=== PATIENT | female | born 1975 | race Caucasian/White ===

== ENCOUNTER → 2016-12-26 | Outpatient (REF) | payer MEDICARE ==
[~2016-12-26] MED LIST: /ADVA50050 INH; /AMIT10TA PO; /PANT40TA PO; /QUET10TA PO; ACTI300C PO; ADV100INH INH; ADV250INH INH; ALBU17IN2 INH; ALPR1TAB3 PO; BACITAB3 PO; CALC-190 PO; CALCI50TA PO; CARA1SUS PO; CHLO25TA5 PO; CHOL4PKT PO; CIPR500T89 PO; CYMB1CAP PO; DOCU10ELUD PO; FLAG500T PO; IMIT100T PO; KRIL300C PO; KRIL300C2 PO; LEVS0.123 PO; LEVS0.123 SL; LOPE2CA PO; LYRI100C10 PO; LYRI150C PO; LYRI200C OR; MAAL600C PO; MESA24CASA PO; MILKSUS PO; MOM30SS PO; MULTTAB4 PO; MYLI40DR PO; OCEA0.65; OMEP40CA2 PO; OXYC15TA66 PO; OXYC30TA4 PO; OXYC5CAP28 PO; PENT500C4 PO; PERCOCET PO; PHEN1SUP6 PO; PRED1TAB32 PO; PRED20TA PO; PRIL20CA PO; PRIL40CA PO; PROB1TAB PO; PROBCAP13 PO; PROBCAP4 PO; REGL10TA6 PO; SIME80TA PO; TRAV0.00 OU; TRAV04OPD OU; TRAZ100T2 PO; TRAZ100T4 PO; TRAZ10TA PO; TRAZ150T OR; TRAZ50TA2 PO; TYLE325T5 PO; ULTR50TA PO; XANA1TAB2 PO; ZANT150T PO; ZOFR4TAB3 SL; ZOFR8TAB PO; ZOFR8TAB4 SL; ZOLO100T OR; ZYPR10TA PO; ZYPREXA ZYDIS PO; albuterol nebulizer NEB; seroquel PO; vicodin PO
[2016-12-26 13:43] LABS: MEAN CORPUSCULAR HEMOGLOBIN 30.5 pg (27.0-33.0); MEAN CORPUSCULAR HGB CONC 33.9 g/dl (32.0-36.5); MEAN CORPUSCULAR VOLUME 89.8 fl (80.0-96.0); RED CELL DISTRIBUTION WIDTH 14.1 % (11.5-14.5); WHITE BLOOD COUNT 6.7 K/mm3 (4.0-10.0)
[2016-12-26 13:44] LABS: ALBUMIN 3.9 GM/DL (3.2-5.2); ALKALINE PHOSPHATASE 122 U/L (45-117); ALT/SGPT 9 U/L (12-78); ANION GAP 8 MEQ/L (8-16); AST/SGOT 10 U/L (15-37); BILIRUBIN,TOTAL 0.5 MG/DL (0.2-1.0); BLOOD UREA NITROGEN 8 MG/DL (7-18); CALCIUM LEVEL 8.5 MG/DL (8.5-10.1); CARBON DIOXIDE LEVEL 27 MEQ/L (21-32); CHLORIDE LEVEL 104 MEQ/L (98-107); CREATININE FOR GFR 0.54 MG/DL (0.55-1.02); GLOMERULAR FILTRATION RATE > 60.0 (>58); GLUCOSE, FASTING 105 MG/DL (70-105); POTASSIUM SERUM 4.1 MEQ/L (3.5-5.1); SODIUM LEVEL 139 MEQ/L (136-145); TOTAL PROTEIN 6.9 GM/DL (6.4-8.2)
== END ==
LOC: M LABDRAW1 13:07
PROVIDERS: ATTEND Family Medicine
DX: F11.20 Opioid dependence, uncomplicated (principal)

== ENCOUNTER → 2017-01-17 | Outpatient (CLI) | payer MEDICARE, MEDICAID ==
--- NOTE | 2017-01-17 14:23 | ECGEPIP ---
Stationary ECG Study [facility] Test Date: 2017-01-17 Pat Name: PONCHO BRIAN Department: Room: - Gender: F Proofreader: AMRITA : [id number] Requested By: Ace Arora Order Number: [id number] Reading MD: Alexandra Chau Measurements Intervals [place] Rate: 69 P: 71 NM: 137 QRS: 91 QRSD: 100 T: 42 QT: 400 QTc: 431 Interpretive Statements SINUS RHYTHM WITH SINUS ARRHYTHMIA BORDERLINE RIGHT AXIS DEVIATION rate faster ant t wave abn no longer present nonspecific inf sttw abn new prob septal repolar changes more prominent c/w 11/23/14 Electronically Signed On 01-17-2017 14:23:26 EDT by Alexandra Chau
== END ==
LOC: M EKG 12:15
PROVIDERS: ATTEND Family Medicine
DX: F11.20 Opioid dependence, uncomplicated (principal)

== ENCOUNTER → 2017-02-08 | Outpatient (CLI) | payer MEDICARE, MEDICAID ==
--- NOTE | 2017-02-08 19:46 | REP ---
AP, LATERAL RIGHT FOOT, TWO VIEWS: HISTORY: Injury. There is no acute fracture or dislocation. The joint spaces are normal in appearance. IMPRESSION: There is no acute fracture or dislocation. Signed by Mitchell Quintero MD 02/08/2017 07:47 P
== END ==
LOC: M WUC 19:17
PROVIDERS: ATTEND Physician Assistant
DX: S90.129A Contusion of unspecified lesser toe(s) without damage to nail, initial encounter (principal); X58.XXXA Exposure to other specified factors, initial encounter; Y92.89 Other specified places as the place of occurrence of the external cause; Y93.89 Activity, other specified; Y99.8 Other external cause status

== ENCOUNTER → 2017-12-19 | Outpatient (REF) | payer MEDICARE, MEDICAID ==
[2017-12-19 12:17] LABS: HEMATOCRIT 45.2 % (36.0-47.0); MEAN CORPUSCULAR HEMOGLOBIN 29.3 pg (27.0-33.0); MEAN CORPUSCULAR HGB CONC 33.2 g/dl (32.0-36.5); MEAN CORPUSCULAR VOLUME 88.3 fl (80.0-96.0); PLATELET COUNT, AUTOMATED 235 10^3/uL (150-450); RED BLOOD COUNT 5.12 10^6/uL (4.00-5.40); RED CELL DISTRIBUTION WIDTH 12.6 % (11.5-14.5); WHITE BLOOD COUNT 7.5 10^3/uL (4.0-10.0)
[2017-12-19 12:37] LABS: TOTAL 25(OH) VITAMIN D 23.6 NG/ML (30.0-100.0)
[2017-12-19 12:53] LABS: ALBUMIN 4.2 GM/DL (3.2-5.2); ALBUMIN/GLOBULIN RATIO 1.17 (1.00-1.93); ALKALINE PHOSPHATASE 205 U/L (45-117); ALT/SGPT 8 U/L (12-78); ANION GAP 9 MEQ/L (8-16); AST/SGOT 14 U/L (7-37); BILIRUBIN,TOTAL 0.4 MG/DL (0.2-1.0); BLOOD UREA NITROGEN 10 MG/DL (7-18); CALCIUM LEVEL 9.3 MG/DL (8.5-10.1); CARBON DIOXIDE LEVEL 24 MEQ/L (21-32); CHLORIDE LEVEL 109 MEQ/L (98-107); CREATININE FOR GFR 0.83 MG/DL (0.55-1.30); GLOMERULAR FILTRATION RATE > 60.0 (>58); GLUCOSE, FASTING 125 MG/DL (70-100); SODIUM LEVEL 142 MEQ/L (136-145); TOTAL PROTEIN 7.8 GM/DL (6.4-8.2)
[2017-12-19 13:01] LABS: LITHIUM LEVEL 0.29 MEQ/L (0.60-1.20)
== END ==
LOC: M LABDRAW1 11:39
DX: F31.89 Other bipolar disorder (principal)
CPT/HCPCS: 80178

== ENCOUNTER → 2018-01-17 | Outpatient (REF) | payer MEDICARE, MEDICAID ==
[2018-01-17 19:05] LABS: ALBUMIN/GLOBULIN RATIO 1.14 (1.00-1.93); ALKALINE PHOSPHATASE 179 U/L (45-117); ALT/SGPT 23 U/L (12-78); ANION GAP 8 MEQ/L (8-16); AST/SGOT 31 U/L (7-37); BILIRUBIN,TOTAL 0.4 MG/DL (0.2-1.0); BLOOD UREA NITROGEN 11 MG/DL (7-18); CALCIUM LEVEL 8.9 MG/DL (8.5-10.1); CARBON DIOXIDE LEVEL 24 MEQ/L (21-32); CHLORIDE LEVEL 107 MEQ/L (98-107); CHOLESTEROL LEVEL 174 MG/DL (<200); CHOLESTEROL RISK RATIO 3.625 (<5); CREATININE FOR GFR 0.61 MG/DL (0.55-1.30); GLOMERULAR FILTRATION RATE > 60.0 (>58); GLUCOSE, FASTING 80 MG/DL (70-100); HDL CHOLESTEROL 48 MG/DL (>40); LDL CHOLESTEROL 104.2 MG/DL (<100); NON-HDL-C 126 MG/DL; POTASSIUM SERUM 4.1 MEQ/L (3.5-5.1); SODIUM LEVEL 139 MEQ/L (136-145); TOTAL PROTEIN 7.5 GM/DL (6.4-8.2); TRIGLYCERIDES LEVEL 109 MG/DL (<150)
[2018-01-17 19:09] LABS: TOTAL 25(OH) VITAMIN D 20.1 NG/ML (30.0-100.0)
== END ==
LOC: M LABDRAW1 17:30
DX: F31.9 Bipolar disorder, unspecified (principal); Z13.9 Encounter for screening, unspecified; Z79.899 Other long term (current) drug therapy
CPT/HCPCS: 80178

== ENCOUNTER → 2018-01-17 | Outpatient (REF) | payer MEDICARE, MEDICAID ==
[2018-01-17 18:15] LABS: LITHIUM LEVEL 0.41 MEQ/L (0.60-1.20)
== END ==
LOC: M LABDRAW1 17:28
DX: F31.9 Bipolar disorder, unspecified (principal)

== ENCOUNTER → 2018-01-18 | Outpatient (REF) | payer MEDICARE, MEDICAID ==
[2018-01-18 19:36] LABS: BASO # 0.1 10^3/uL (0.0-0.2); BASO % 0.8 % (0.0-1.0); EOS # 0.1 10^3/uL (0.0-0.50); EOS % 1.5 % (0.0-3.0); HEMATOCRIT 45.8 % (36.0-47.0); IMMATURE GRANULOCYTE % 0.4 % (0-3.0); LYMPH # 1.9 10^3/uL (1.5-4.5); LYMPH % 24.9 % (24.0-44.0); MEAN CORPUSCULAR HEMOGLOBIN 29.1 pg (27.0-33.0); MEAN CORPUSCULAR HGB CONC 32.8 g/dl (32.0-36.5); MEAN CORPUSCULAR VOLUME 88.8 fl (80.0-96.0); MONO # 0.5 10^3/uL (0.0-0.8); MONO % 6.7 % (0.0-5.0); NEUTROPHILS # 5.1 10^3/uL (1.8-7.7); NEUTROPHILS % 65.7 % (36.0-66.0); PLATELET COUNT, AUTOMATED 247 10^3/uL (150-450); RED BLOOD COUNT 5.16 10^6/uL (4.00-5.40); RED CELL DISTRIBUTION WIDTH 13.1 % (11.5-14.5); WHITE BLOOD COUNT 7.8 10^3/uL (4.0-10.0)
[2018-01-18 20:04] LABS: ESTIMATED AVERAGE GLUCOSE 103 MG/DL (60-110); HEMOGLOBIN A1c 5.2 %
== END ==
LOC: M LAB REF 17:58
DX: Z13.9 Encounter for screening, unspecified (principal); Z79.899 Other long term (current) drug therapy
CPT/HCPCS: 83036

== ENCOUNTER → 2018-05-27 | Outpatient (CLI) | payer MEDICARE | LOC: M RAD 13:44 | DX: R05 Cough (principal); R07.89 Other chest pain | CPT/HCPCS: 71046 ==

== ENCOUNTER → 2018-10-15 | Outpatient (REF) | payer MEDICARE ==
[~2018-10-15] MED LIST changes: +BACITAB PO; -BACITAB3 PO; +CIPR-249 PO; -LYRI100C10 PO; +MILK120011 PO; -MILKSUS PO; +PREG100CA PO; +TRAZ-163 PO; -TRAZ100T4 PO; +ZOFR8TAB22 SL; +ZOFR8TAB24 PO; -ZOFR8TAB4 SL
[2018-10-15 18:28] LABS: ALT/SGPT 15 U/L (12-78); BILIRUBIN,TOTAL 0.4 MG/DL (0.2-1.0); BLOOD UREA NITROGEN 10 MG/DL (7-18); CALCIUM LEVEL 8.8 MG/DL (8.5-10.1); CARBON DIOXIDE LEVEL 28 MEQ/L (21-32); CHLORIDE LEVEL 102 MEQ/L (98-107); CHOLESTEROL LEVEL 177 MG/DL (<200); CHOLESTEROL RISK RATIO 3.218 (<5); CREATININE FOR GFR 0.76 MG/DL (0.55-1.30); GLOMERULAR FILTRATION RATE > 60.0 (>58); GLUCOSE, FASTING 110 MG/DL (70-100); HDL CHOLESTEROL 55 MG/DL (>40); LDL CHOLESTEROL 104 MG/DL (<100); LITHIUM LEVEL 1.11 MEQ/L (0.60-1.20); NON-HDL-C 122 MG/DL; PHOSPHORUS LEVEL 3.1 MG/DL (2.5-4.9); POTASSIUM SERUM 3.5 MEQ/L (3.5-5.1); SODIUM LEVEL 138 MEQ/L (136-145); TOTAL PROTEIN 7.6 GM/DL (6.4-8.2); TRIGLYCERIDES LEVEL 90 MG/DL (<150)
== END ==
LOC: M LABDRAW1 17:18
PROVIDERS: ATTEND Nurse Practitioner Psychiatric/Mental Health
DX: Z79.899 Other long term (current) drug therapy (principal)

== ENCOUNTER → 2022-11-29 | Outpatient (CLI) | payer MEDICARE, MEDICAID ==
[~2022-11-29] MED LIST changes: -/ADVA50050 INH; -/AMIT10TA PO; -/PANT40TA PO; -/QUET10TA PO; +ADVA1AER2 INH; +AMIT1TAB10 PO; -DOCU10ELUD PO; +DOCU5LIQ PO; +OMEP40CA4 PO; +ONDA-227 PO; +ONDA-228 SL; +OXYC1TAB23 PO; -PERCOCET PO; +PROT1TAB2 PO; +SERO1TAB PO; -TRAZ-163 PO; +TRAZ-164 PO; +TRAZ-257 PO; -TRAZ10TA PO; -ZOFR4TAB3 SL; -ZOFR8TAB PO
[2022-11-29 12:32] LABS: BASO # 0.1 10^3/uL (0.0-0.2); BASO % 0.7 % (0.0-1.0); EOS # 0.2 10^3/uL (0.0-0.5); EOS % 2.3 % (0.0-3.0); HEMATOCRIT 43.3 % (36.0-47.0); HEMOGLOBIN 13.9 g/dl (12.0-15.5); LYMPH # 2.9 10^3/uL (1.5-5.0); LYMPH % 33.8 % (24.0-44.0); MEAN CORPUSCULAR HEMOGLOBIN 29.6 pg (27.0-33.0); MEAN CORPUSCULAR HGB CONC 32.1 g/dl (32.0-36.5); MEAN CORPUSCULAR VOLUME 92.3 fl (80.0-96.0); MONO # 0.6 10^3/uL (0.0-0.8); NEUTROPHILS # 4.8 10^3/uL (1.5-8.5); PLATELET COUNT, AUTOMATED 194 10^3/uL (150-450); RED BLOOD COUNT 4.69 10^6/uL (4.00-5.40); WHITE BLOOD COUNT 8.6 10^3/uL (4.0-10.0)
[2022-11-29 12:47] LABS: ERYTHROCYTE SEDIMENTATION RATE 10 mm/hr (0-20)
[2022-11-29 12:50] LABS: URIC ACID 3.9 MG/DL (3.1-7.8)
[2022-11-29 14:01] LABS: ALBUMIN 4.1 G/DL (3.2-5.2); ALKALINE PHOSPHATASE 139 U/L (46-116); ALT/SGPT < 9 U/L (7.0-40); AST/SGOT 24 U/L (<34); BILIRUBIN,TOTAL 0.2 MG/DL (0.3-1.2); BLOOD UREA NITROGEN 14 MG/DL (9-23); CALCIUM LEVEL 9.5 MG/DL (8.5-10.1); CARBON DIOXIDE LEVEL 29 MMOL/L (20-31); CHLORIDE LEVEL 106 MMOL/L (98-107); CREATININE FOR GFR 0.56 MG/DL (0.55-1.30); GLOMERULAR FILTRATION RATE > 60.0 (>58); GLUCOSE, FASTING 95 MG/DL (60-100); POTASSIUM SERUM 4.1 MMOL/L (3.5-5.1); RHEUMATOID FACTOR QUANT < 3.5 IU/ML (<14); SODIUM LEVEL 140 MMOL/L (136-145); TOTAL PROTEIN 7.1 G/DL (5.7-8.2)
[2022-11-30 12:08] LABS: ANTINUCLEAR ANTIBODIES DIRECT Negative (Negative)
== END ==
LOC: M RAD 11:52
PROVIDERS: ATTEND Physician Assistant
DX: M25.50 Pain in unspecified joint (principal)

== ENCOUNTER 2023-01-05 11:59 | Inpatient (IN) | payer MEDICARE, MEDICAID ==
[~2023-01-05] VITALS: Ht 166.4 cm; Wt 53.6 kg
[~2023-01-05 11:59] MED LIST changes: -ALBU8.5H INH; -CEPH500C PO; -FLUT1BLS2 IH; -LITH300T2 PO; -LYRI200C PO; -PANT-23 PO; -QUET100T2 PO; -QUET300T93 PO; -QUET400T42 PO; -[UNRECOGNIZED DRUG - CODE] PO
[2023-01-05] MEDS ORDERED: ALBUTEROL SULFATE 2.5MG/0.5ML INH NEB SOLN NEB PRN (13:30)
[2023-01-05] MEDS ORDERED: VANCOMYCIN HCL 1,000 MG, VIAL MATE ADAPTER 1 EACH in NS 250 ML IV SCH (13:30)
[2023-01-05] MEDS ORDERED: ACETAMINOPHEN TAB 650MG DOSE (2X325MG) PO PRN (13:30)
[2023-01-05] MEDS ORDERED: KETOROLAC 30 MG/ML 1ML VIAL IV PRN (13:30)
[2023-01-05 14:00] VITALS: BP 100/64
[2023-01-05] MEDS ORDERED: ALBU8.5H INH (15:30)
[2023-01-05] MEDS ORDERED: QUET400T42 PO (15:30)
[2023-01-05] MEDS ORDERED: LYRI200C PO (15:30)
[2023-01-05] MEDS ORDERED: LITH300T2 PO (15:30)
[2023-01-05] MEDS ORDERED: QUET100T2 PO (15:30)
[2023-01-05] MEDS ORDERED: QUET300T93 PO (15:30)
[2023-01-05] MEDS ORDERED: FLUT1BLS2 IH (15:30)
[2023-01-05] MEDS ORDERED: PANT-23 PO (15:31)
[2023-01-05] MEDS ORDERED: [UNRECOGNIZED DRUG - CODE] PO (15:36)
[2023-01-05] MEDS ORDERED: HOME MED LIST COMPLETE! XX SCH (15:40)
[2023-01-05] MEDS ORDERED: MORPHINE 4 MG/ML 1ML VIAL IV PRN (17:15)
[2023-01-05] MEDS ORDERED: oxyCODONE 5MG TAB PO PRN (17:15)
[2023-01-05 17:26] LABS: BASO # 0.1 10^3/uL (0.0-0.2); EOS # 0.3 10^3/uL (0.0-0.5); EOS % 4.4 % (0.0-3.0); HEMATOCRIT 35.9 % (36.0-47.0); HEMOGLOBIN 12.1 g/dl (12.0-15.5); LYMPH # 2.8 10^3/uL (1.5-5.0); LYMPH % 41.8 % (24.0-44.0); MEAN CORPUSCULAR HEMOGLOBIN 30.5 pg (27.0-33.0); MEAN CORPUSCULAR HGB CONC 33.7 g/dl (32.0-36.5); MEAN CORPUSCULAR VOLUME 90.4 fl (80.0-96.0); MONO # 0.5 10^3/uL (0.0-0.8); NEUTROPHILS % 44.5 % (36.0-66.0); PLATELET COUNT, AUTOMATED 202 10^3/uL (150-450); RED BLOOD COUNT 3.97 10^6/uL (4.00-5.40); WHITE BLOOD COUNT 6.8 10^3/uL (4.0-10.0)
[2023-01-05 17:37] LABS: C REACTIVE PROTEIN QUANTITATIV < 0.40 MG/DL (<1.0)
[2023-01-05 17:39] LABS: BLOOD UREA NITROGEN 14 MG/DL (9-23); CARBON DIOXIDE LEVEL 27 MMOL/L (20-31); CHLORIDE LEVEL 109 MMOL/L (98-107); CREATININE FOR GFR 0.64 MG/DL (0.55-1.30); GLOMERULAR FILTRATION RATE > 60.0 (>58); GLUCOSE, FASTING 79 MG/DL (60-100); POTASSIUM SERUM 4.1 MMOL/L (3.5-5.1); SODIUM LEVEL 142 MMOL/L (136-145)
[2023-01-05 17:55] LABS: INR 0.91; PROTHROMBIN TIME 12.4 SECONDS (12.5-14.5)
[2023-01-05 17:56] LABS: PARTIAL THROMBOPLASTIN TIME 31.4 SECONDS (24.8-34.2)
[2023-01-05] MEDS: oxyCODONE 5MG TAB PO PRN (17:56)
[2023-01-05] MEDS: PIPERACILLIN/TAZOBACTAM SOD 3.375 GM in D5W MINI-BAG PLUS 50 ML IV SCH ×2 (17:57→23:38)
[2023-01-05] MEDS ORDERED: VANCOMYCIN HCL 1,000 MG, VIAL MATE ADAPTER 1 EACH in D5W 250 ML IV ONE (20:00)
[2023-01-05] MEDS: LITHIUM CARBONATE 300 MG CAP PO SCH (20:03)
[2023-01-05] MEDS: SYMBICORT 160/4.5MCG INHALER 6GM INH SCH (20:28)
[2023-01-05] MEDS ORDERED: QUEtiapine FUMARATE **XR** 200MG TABLET PO SCH (21:00)
[2023-01-05] MEDS ORDERED: QUEtiapine 300MG XR TABLET (SEROQUEL XR) PO SCH (21:00)
[2023-01-05] MEDS: PREGABALIN 100 MG CAP (LYRICA) PO SCH (21:04)
[2023-01-05 22:00] VITALS: BP 102/60
[2023-01-06] MEDS: VANCOMYCIN HCL 500 MG in D5W MINI-BAG PLUS 100 ML IV SCH ×2 (03:31→15:41)
[2023-01-06] MEDS: oxyCODONE 5MG TAB PO PRN ×2 (03:31→18:38)
[2023-01-06] MEDS: PIPERACILLIN/TAZOBACTAM SOD 3.375 GM in D5W MINI-BAG PLUS 50 ML IV SCH ×2 (05:43→12:14)
[2023-01-06 06:00] VITALS: BP 86/48
[2023-01-06] MEDS ORDERED: NS 1,000 ML IV ONE (06:00)
[2023-01-06 07:33] LABS: BASO # 0.1 10^3/uL (0.0-0.2); EOS # 0.2 10^3/uL (0.0-0.5); EOS % 2.6 % (0.0-3.0); HEMATOCRIT 31.6 % (36.0-47.0); HEMOGLOBIN 10.2 g/dl (12.0-15.5); LYMPH # 2.2 10^3/uL (1.5-5.0); LYMPH % 35.1 % (24.0-44.0); MEAN CORPUSCULAR HEMOGLOBIN 30.1 pg (27.0-33.0); MEAN CORPUSCULAR HGB CONC 32.3 g/dl (32.0-36.5); MEAN CORPUSCULAR VOLUME 93.2 fl (80.0-96.0); MONO # 0.5 10^3/uL (0.0-0.8); MONO % 8.8 % (2.0-8.0); NEUTROPHILS # 3.2 10^3/uL (1.5-8.5); NEUTROPHILS % 52.2 % (36.0-66.0); PLATELET COUNT, AUTOMATED 154 10^3/uL (150-450); RED BLOOD COUNT 3.39 10^6/uL (4.00-5.40); WHITE BLOOD COUNT 6.2 10^3/uL (4.0-10.0)
[2023-01-06 07:44] LABS: BLOOD UREA NITROGEN 11 MG/DL (9-23); CALCIUM LEVEL 7.8 MG/DL (8.5-10.1); CARBON DIOXIDE LEVEL 24 MMOL/L (20-31); CHLORIDE LEVEL 114 MMOL/L (98-107); CREATININE FOR GFR 0.61 MG/DL (0.55-1.30); GLOMERULAR FILTRATION RATE > 60.0 (>58); GLUCOSE, FASTING 97 MG/DL (60-100); POTASSIUM SERUM 3.8 MMOL/L (3.5-5.1); SODIUM LEVEL 144 MMOL/L (136-145)
[2023-01-06 08:13] LABS: C REACTIVE PROTEIN QUANTITATIV < 0.40 MG/DL (<1.0)
[2023-01-06] MEDS: SYMBICORT 160/4.5MCG INHALER 6GM INH SCH (08:24)
[2023-01-06] MEDS: QUEtiapine FUMARATE 100 MG TAB PO SCH ×3 (09:00→18:43)
[2023-01-06] MEDS ORDERED: PANTOPRAZOLE 40MG TAB (PROTONIX) PO SCH (09:00)
[2023-01-06] MEDS: PREGABALIN 100 MG CAP (LYRICA) PO SCH ×2 (09:00→18:38)
[2023-01-06] MEDS: LITHIUM CARBONATE 300 MG CAP PO SCH (09:00)
[2023-01-06] MEDS ORDERED: KETAMINE HCL 200MG/20ML VIAL As Ordered ONE (10:44)
[2023-01-06] MEDS ORDERED: fentaNYL 100 MCG/2 ML INJECTION As Ordered ONE ×2 (10:45→12:23)
[2023-01-06] MEDS ORDERED: MIDAZOLAM INJ 2MG/2ML VIAL As Ordered ONE (10:45)
[2023-01-06] MEDS ORDERED: propofoL 200 MG/20 ML VIAL As Ordered ONE (10:53)
[2023-01-06] MEDS ORDERED: LIDOCAINE 2% 100MG/5ML SDV (FOR ANES.) As Ordered ONE (10:53)
[2023-01-06] MEDS ORDERED: ONDANSETRON 4MG 2ML VIAL As Ordered ONE (10:53)
[2023-01-06] MEDS ORDERED: BUPIVACAINE HCL 0.25% 30ML VIAL As Ordered ONE (11:04)
[2023-01-06] MEDS ORDERED: VANCOMYCIN 1000MG/20ML VIAL As Ordered ONE (11:05)
[2023-01-06] MEDS ORDERED: ZOSYN 3.375GM VIAL As Ordered ONE (12:14)
[2023-01-06] MEDS ORDERED: BACITRACIN OINTMENT 30GM TUBE As Ordered ONE (12:29)
[2023-01-06] MEDS ORDERED: CEPH500C PO (12:56)
[2023-01-06 13:55] VITALS: BP 89/51
[2023-01-06 14:55] VITALS: BP 91/46
[2023-01-06 18:00] VITALS: BP 114/96
== END 2023-01-06 18:20 | disposition home or self-care (01) | DRG 580 ==
LOC: M MS5PR 12:34
PROVIDERS: ADMIT Internal Medicine; ATTEND Internal Medicine Nephrology
PROC: 0LB80ZZ Excision of Left Hand Tendon, Open Approach (ICD-10-PCS; 2023-01-06)
PROC: 0LQ80ZZ Repair Left Hand Tendon, Open Approach (ICD-10-PCS; principal; 2023-01-06 11:45)
DX: L08.9 Local infection of the skin and subcutaneous tissue, unspecified (principal); S66.121A Laceration of flexor muscle, fascia and tendon of left index finger at wrist and hand level, initial encounter; M79.89 Other specified soft tissue disorders; J45.909 Unspecified asthma, uncomplicated; M54.9 Dorsalgia, unspecified; G89.29 Other chronic pain; K27.9 Peptic ulcer, site unspecified, unspecified as acute or chronic, without hemorrhage or perforation; H40.9 Unspecified glaucoma; F17.210 Nicotine dependence, cigarettes, uncomplicated; M65.9 Synovitis and tenosynovitis, unspecified; K44.9 Diaphragmatic hernia without obstruction or gangrene; F31.9 Bipolar disorder, unspecified; F41.9 Anxiety disorder, unspecified; Z90.49 Acquired absence of other specified parts of digestive tract; Z90.79 Acquired absence of other genital organ(s); Z88.1 Allergy status to other antibiotic agents; Z79.899 Other long term (current) drug therapy; Z20.822 Contact with and (suspected) exposure to COVID-19; W25.XXXA Contact with sharp glass, initial encounter; Y92.9 Unspecified place or not applicable

== ENCOUNTER → 2023-01-05 | Outpatient (CLI) | payer MEDICARE, MEDICAID ==
[~2023-01-05] MED LIST changes: +ALBU8.5H INH; +CEPH500C PO; +FLUT1BLS2 IH; +LITH300T2 PO; +LYRI200C PO; +PANT-23 PO; +QUET100T2 PO; +QUET300T93 PO; +QUET400T42 PO; +[UNRECOGNIZED DRUG - CODE] PO
== END ==
LOC: M SOG 10:59
PROVIDERS: ATTEND Physician Assistant
DX: M79.89 Other specified soft tissue disorders (principal)

== ENCOUNTER → 2023-01-11 | Outpatient (REF) | payer MEDICARE, MEDICAID ==
[~2023-01-11] MED LIST changes: +ALBU8.5H INH; +CEPH500C PO; +FLUT1BLS2 IH; +LITH300T2 PO; +LYRI200C PO; +PANT-23 PO; +QUET100T2 PO; +QUET300T93 PO; +QUET400T42 PO; +[UNRECOGNIZED DRUG - CODE] PO
[2023-01-11 18:35] LABS: BASO # 0.1 10^3/uL (0.0-0.2); EOS # 0.2 10^3/uL (0.0-0.5); EOS % 3.2 % (0.0-3.0); HEMATOCRIT 43.3 % (36.0-47.0); HEMOGLOBIN 14.1 g/dl (12.0-15.5); LYMPH # 2.4 10^3/uL (1.5-5.0); LYMPH % 33.4 % (24.0-44.0); MEAN CORPUSCULAR HEMOGLOBIN 29.9 pg (27.0-33.0); MEAN CORPUSCULAR HGB CONC 32.6 g/dl (32.0-36.5); MEAN CORPUSCULAR VOLUME 91.7 fl (80.0-96.0); MONO # 0.4 10^3/uL (0.0-0.8); MONO % 5.7 % (2.0-8.0); NEUTROPHILS # 4.1 10^3/uL (1.5-8.5); NEUTROPHILS % 56.6 % (36.0-66.0); PLATELET COUNT, AUTOMATED 242 10^3/uL (150-450); RED BLOOD COUNT 4.72 10^6/uL (4.00-5.40); WHITE BLOOD COUNT 7.2 10^3/uL (4.0-10.0)
[2023-01-11 18:44] LABS: HEMOGLOBIN A1c 4.8 % (4.0-6.0)
[2023-01-11 18:53] LABS: ALKALINE PHOSPHATASE 131 U/L (46-116); ALT/SGPT < 9 U/L (7.0-40); AST/SGOT 16 U/L (<34); BILIRUBIN,TOTAL 0.3 MG/DL (0.3-1.2); BLOOD UREA NITROGEN 19 MG/DL (9-23); CALCIUM LEVEL 9.5 MG/DL (8.5-10.1); CARBON DIOXIDE LEVEL 26 MMOL/L (20-31); CHLORIDE LEVEL 107 MMOL/L (98-107); CHOLESTEROL LEVEL 200 MG/DL (<200); CHOLESTEROL RISK RATIO 2.82 (<5); CREATININE FOR GFR 0.62 MG/DL (0.55-1.30); GLOMERULAR FILTRATION RATE > 60.0 (>58); GLUCOSE, FASTING 80 MG/DL (60-100); HDL CHOLESTEROL 70.7 MG/DL (>40); LDL CHOLESTEROL 107.1 MG/DL (<100); NON-HDL-C 129.3 MG/DL; POTASSIUM SERUM 4.1 MMOL/L (3.5-5.1); SODIUM LEVEL 135 MMOL/L (136-145); TRIGLYCERIDES LEVEL 111 MG/DL (<150)
[2023-01-11 18:55] LABS: THYROID STIMULATING HORMONE 3.329 uIU/ML (0.55-4.78); TOTAL 25(OH) VITAMIN D 23.4 NG/ML (20.0-100.0)
== END ==
LOC: M LAB REF 17:37
PROVIDERS: ATTEND Nurse Practitioner Family
DX: Z13.228 Encounter for screening for other metabolic disorders (principal)

== ENCOUNTER 2023-01-16 03:49 | Emergency (ER) | payer OTHER, MEDICARE, MEDICAID ==
[~2023-01-16] VITALS: Ht 165.1 cm; Wt 53.6 kg
[2023-01-16] MEDS ORDERED: LEVO50TA5 (07:48)
[2023-01-16 10:44] VITALS: BP 108/63
== END 2023-01-16 10:53 | disposition home or self-care (01) ==
LOC: M ED 03:49
DX: M54.9 Dorsalgia, unspecified (principal); M54.2 Cervicalgia; Z85.41 Personal history of malignant neoplasm of cervix uteri; F17.200 Nicotine dependence, unspecified, uncomplicated; Z88.1 Allergy status to other antibiotic agents; Z79.51 Long term (current) use of inhaled steroids; Z79.899 Other long term (current) drug therapy

== ENCOUNTER 2023-09-11 01:40 | Emergency (ER) | payer MEDICAID, OTHER ==
[~2023-09-11] VITALS: Ht 176.5 cm; Wt 52.3 kg
[~2023-09-11 01:40] MED LIST changes: +LEVO50TA5
[2023-09-11 01:53] VITALS: BP 148/91; TEMP 97.4; O2SAT 97
== END 2023-09-11 04:54 | disposition left against medical advice (07) ==
LOC: EDBD 01:40 → M ED 01:40
DX: Z53.21 Procedure and treatment not carried out due to patient leaving prior to being seen by health care provider (principal)

== ENCOUNTER → 2023-11-01 | Outpatient (CLI) | payer MEDICARE, MEDICAID | LOC: M RAD 17:22 | PROVIDERS: ATTEND Physician Assistant | DX: S99.912A Unspecified injury of left ankle, initial encounter (principal); Y92.9 Unspecified place or not applicable; Y99.9 Unspecified external cause status; Y93.9 Activity, unspecified; X58.XXXA Exposure to other specified factors, initial encounter ==

== ENCOUNTER → 2024-02-16 | Outpatient (CLI) | payer MEDICARE, MEDICAID ==
[2024-02-16 12:46] LABS: LITHIUM LEVEL 0.14 MMOL/L (1.0-1.20)
[2024-02-16 12:47] LABS: ALBUMIN 3.9 G/DL (3.2-5.2); ALKALINE PHOSPHATASE 178 U/L (46-116); ALT/SGPT 9 U/L (7.0-40); AST/SGOT 20 U/L (<34); BILIRUBIN,DIRECT 0.1 MG/DL (<0.4); BILIRUBIN,TOTAL 0.4 MG/DL (0.3-1.2); BLOOD UREA NITROGEN 13 MG/DL (9-23); CALCIUM LEVEL 9.4 MG/DL (8.5-10.1); CARBON DIOXIDE LEVEL 27 MMOL/L (20-31); CHLORIDE LEVEL 109 MMOL/L (98-107); CREATININE FOR GFR 0.53 MG/DL (0.55-1.30); GLOMERULAR FILTRATION RATE > 60.0 (>58); GLUCOSE, FASTING 89 MG/DL (60-100); MAGNESIUM LEVEL 1.8 MG/DL (1.8-2.4); POTASSIUM SERUM 3.9 MMOL/L (3.5-5.1); SODIUM LEVEL 141 MMOL/L (136-145); THYROID STIMULATING HORMONE 4.645 uIU/ML (0.55-4.78); TOTAL PROTEIN 6.4 G/DL (5.7-8.2)
== END ==
LOC: M WUC 09:48
PROVIDERS: ATTEND Nurse Practitioner Psychiatric/Mental Health
DX: F31.81 Bipolar II disorder (principal)

== ENCOUNTER → 2024-05-24 | Outpatient (CLI) | payer MEDICARE, MEDICAID ==
[2024-05-24 11:00] LABS: ALBUMIN 4.2 G/DL (3.2-5.2); ALKALINE PHOSPHATASE 177 U/L (46-116); ALT/SGPT < 9 U/L (7.0-40); AST/SGOT 10 U/L (<34); BILIRUBIN,TOTAL 0.5 MG/DL (0.3-1.2); BLOOD UREA NITROGEN 10 MG/DL (9-23); CALCIUM LEVEL 9.9 MG/DL (8.5-10.1); CARBON DIOXIDE LEVEL 25 MMOL/L (20-31); CHLORIDE LEVEL 107 MMOL/L (98-107); CHOLESTEROL LEVEL 248 MG/DL (<200); CHOLESTEROL RISK RATIO 2.34 (<5); CREATININE FOR GFR 0.75 MG/DL (0.55-1.30); GLOMERULAR FILTRATION RATE > 60.0 (>58); GLUCOSE, FASTING 131 MG/DL (60-100); HDL CHOLESTEROL 105.9 MG/DL (>40); LDL CHOLESTEROL 121.5 MG/DL (<100); LITHIUM LEVEL 0.55 MMOL/L (1.0-1.20); MAGNESIUM LEVEL 2.1 MG/DL (1.8-2.4); NON-HDL-C 142.1 MG/DL; POTASSIUM SERUM 3.9 MMOL/L (3.5-5.1); SODIUM LEVEL 137 MMOL/L (136-145); TOTAL PROTEIN 7.5 G/DL (5.7-8.2); TRIGLYCERIDES LEVEL 103 MG/DL (<150)
[2024-05-24 11:01] LABS: FREE T3 2.4 PG/ML (2.3-4.2)
[2024-05-24 11:02] LABS: FREE T4 0.86 NG/DL (0.89-1.76); THYROID STIMULATING HORMONE 5.936 uIU/ML (0.55-4.78)
== END ==
LOC: M LAB 10:04
PROVIDERS: ATTEND Nurse Practitioner Psychiatric/Mental Health
DX: F31.81 Bipolar II disorder (principal); Z79.899 Other long term (current) drug therapy

== ENCOUNTER → 2024-06-28 | Outpatient (REF) | payer MEDICARE, MEDICAID ==
[2024-06-28 19:24] LABS: BASO # 0.1 10^3/uL (0.0-0.2); BASO % 0.9 % (0.0-1.0); EOS # 0.2 10^3/uL (0.0-0.5); EOS % 2.7 % (0.0-3.0); HEMOGLOBIN 12.8 g/dl (12.0-15.5); LYMPH # 1.8 10^3/uL (1.5-5.0); LYMPH % 32.2 % (24.0-44.0); MEAN CORPUSCULAR HEMOGLOBIN 29.9 pg (27.0-33.0); MEAN CORPUSCULAR HGB CONC 32.8 g/dl (32.0-36.5); MEAN CORPUSCULAR VOLUME 91.1 fl (80.0-96.0); MONO # 0.5 10^3/uL (0.0-0.8); MONO % 8.2 % (2.0-8.0); NEUTROPHILS # 3.1 10^3/uL (1.5-8.5); NEUTROPHILS % 55.8 % (36.0-66.0); PLATELET COUNT, AUTOMATED 205 10^3/uL (150-450); RED BLOOD COUNT 4.28 10^6/uL (4.00-5.40); WHITE BLOOD COUNT 5.5 10^3/uL (4.0-10.0)
[2024-06-28 19:56] LABS: ALBUMIN 3.5 G/DL (3.2-5.2); ALKALINE PHOSPHATASE 152 U/L (35-104); ALT/SGPT < 9 U/L (7.0-40); AST/SGOT < 8 U/L (<34); BILIRUBIN,TOTAL 0.3 MG/DL (0.3-1.2); BLOOD UREA NITROGEN 10 MG/DL (9-23); CALCIUM LEVEL 9.5 MG/DL (8.5-10.1); CARBON DIOXIDE LEVEL 27 MMOL/L (20-31); CHLORIDE LEVEL 113 MMOL/L (98-107); CHOLESTEROL LEVEL 185 MG/DL (<200); CHOLESTEROL RISK RATIO 2.78 (<5); GLOMERULAR FILTRATION RATE > 60.0 (>58); GLUCOSE, FASTING 87 MG/DL (60-100); HDL CHOLESTEROL 66.4 MG/DL (>40); LDL CHOLESTEROL 97.2 MG/DL (<100); NON-HDL-C 118.6 MG/DL; POTASSIUM SERUM 4.5 MMOL/L (3.5-5.1); SODIUM LEVEL 145 MMOL/L (136-145); TOTAL PROTEIN 6.4 G/DL (5.7-8.2); TRIGLYCERIDES LEVEL 107 MG/DL (<150)
[2024-06-28 20:00] LABS: THYROID STIMULATING HORMONE 1.709 uIU/ML (0.55-4.78)
== END ==
LOC: M LAB REF 16:20
PROVIDERS: ATTEND Nurse Practitioner Family
DX: R63.6 Underweight (principal); Z79.899 Other long term (current) drug therapy

== ENCOUNTER → 2024-07-23 | Outpatient (CLI) | payer MEDICARE, MEDICAID | LOC: M WUC 08:54 | PROVIDERS: ATTEND Family Medicine Addiction Medicine | DX: R05.3 Chronic cough (principal) ==

== ENCOUNTER → 2024-09-16 | Outpatient (CLI) | payer MEDICARE, MEDICAID ==
[~2024-09-16] MED LIST changes: -ADV100INH INH; +ADVA1AER8 INH; +ADVA1AER9 INH
== END ==
LOC: M WHC 08:35
PROVIDERS: ATTEND Family Medicine Addiction Medicine
DX: Z85.41 Personal history of malignant neoplasm of cervix uteri (principal)

== ENCOUNTER → 2024-09-23 | Outpatient (REF) | payer MEDICARE, MEDICAID | LOC: M LAB REF 16:19 | PROVIDERS: ATTEND Nurse Practitioner Family | DX: J02.9 Acute pharyngitis, unspecified (principal) ==

== ENCOUNTER → 2025-07-07 | Outpatient (CLI) | payer MEDICAID, MEDICARE ==
[~2025-07-07] MED LIST changes: +PREG-35 PO; -PREG100CA PO
== END ==
LOC: M WUC 13:12
PROVIDERS: ATTEND Family Medicine Addiction Medicine
DX: M54.2 Cervicalgia (principal)